=== PATIENT | male | born 1965 | race Caucasian/White ===

== ENCOUNTER 2022-01-23 16:44 | Emergency (ER) | payer OTHER, SELFPAY ==
[2022-01-23] VITALS (16 sets, daily range): BP systolic 152–178; BP diastolic 101–119; PULSE 60–67; TEMP 36.4; O2SAT 94–98; BMI 31.7
--- NOTE | 2022-01-23 16:53 | ED.GENADULT ---
HPI - General Adult General Time Seen by Provider: 16:53 Date Seen: 01/23/22 Chief complaint: Chest Pain Stated complaint: Chest Pain, Light Headed Time Seen by Provider: 01/23/22 16:48 Source: patient and RN notes reviewed Mode of arrival: ambulatory Limitations: no limitations History of Present Illness HPI narrative: Patient is a 56-year-old male coming in with concern of some left chest pain that is occasionally felt into his back. He noticed this yesterday. He feels like he noticed it after he woke up, believes it did not wake him up. Was there during the day. Did not really alter his activity. This morning when he woke up he does not feel like he felt the discomfort. He went and had a cup of coffee and felt the left chest pain come on but no regurgitant symptom with that. He states he has had some indigestion before which she will describe as a symptom he feels in his left chest, he will usually feel a regurgitant episode with it though. He did go 4 miles on the elliptical this morning, after the chest pain is started, but does not recollect the really had a lot of chest pain at the time. He had no problems completing that 4 miles. He did go out and shovel snow after that. When he started shoveling snow he remembers that he felt a little of the symptoms in the chest but does not believe it worsened. Does not seem to be altered by breathing. He felt a little lightheaded or dizzy, not a spinning sensation with it prior to coming in. Was just sitting on the couch and felt like his heart did a funny beat or skipped a beat and he thought he could fall forward. That prompted him to come in. He has not had any cough or cold symptoms, no fevers or chills. No abdominal pain with this. He states back in the early , he had an episode where he felt like his heart was doing something funny, came in and his blood pressure was elevated. He states he wore a monitor for a day and they did not find anything. He had had no interim complications. He states last year his cholesterol was elevated. He does not carry a prior diagnosis of hypertension, hyperlipidemia or diabetes. He is not aware of any cardiac disease in his family history. Related Data Previous Rx's Medication Instructions Recorded omeprazole 40 mg capsule,delayed 40 mg PO DAILY #14 caps 01/23/22 release Allergies Allergy/AdvReac Type Severity Reaction Status Date / Time No Known Drug Allergies Allergy Verified 01/23/22 16:50 Review of Systems Status of ROS: Reports: 10 or more systems reviewed and unremarkable except as noted in History and below PFS PFS Social History Smoking Status: Never smoker How often do you have a drink containing alcohol: 4 or more times a week How many standard drinks containing alcohol do you have on a typical day: 3 or 4 How often do you have six or more drinks on one occasion: Never AUDIT-C Alcohol total score: 5 Non-prescribed substance use: denies use Exam Const: Vital Signs, click to edit/add: Vital Signs - 24 hr 01/23/22 16:48 01/23/22 17:00 01/23/22 17:05 Temperature 97.6 F Pulse Rate Pulse Rate [Left P ulse Oximeter] 65 66 Blood Pressure Blood Pressure [Le ft Upper Arm] 178/119 H 175/106 H Pulse Oximetry 98 97 97 Oxygen Delivery Me thod Room Air Room Air 01/23/22 17:24 01/23/22 17:30 01/23/22 17:32 Temperature Pulse Rate 67 63 62 Pulse Rate [Left P ulse Oximeter] Blood Pressure 152/103 H Blood Pressure [Le ft Upper Arm] Pulse Oximetry 95 96 96 Oxygen Delivery Me thod 01/23/22 17:45 Temperature Pulse Rate 61 Pulse Rate [Left P ulse Oximeter] Blood Pressure Blood Pressure [Le ft Upper Arm] Pulse Oximetry 96 Oxygen Delivery Me thod Documenting provider has reviewed patient's vital signs: yes Common normals: no apparent distress, average body habitus, oriented x3, no limitations, healthy appearing, alert and well nourished General appearance: cooperative, comfortable, well kempt and well developed Nutritional appearance: overweight HENMT: Common normals: normocephalic, head/scalp atraumatic, hearing grossly normal bilaterally, external ears normal, external nose normal, nasal mucous membranes and turbinates normal, moist oral mucous membranes, oropharynx normal, dentition normal and gingiva normal Head and scalp: normocephalic and atraumatic Nose: external nose normal and nasal mucous membranes and turbinates normal External ear: external ears normal Eye: Common normals: PERRL, EOMs intact bilaterally, conjunctivae normal and no scleral icterus Conjunctiva: conjunctiva(e) normal Pupil: PERRL Neck & C-Spine: Common normals: full ROM, no lymphadenopathy, supple, no meningeal signs, no JVD and thyroid normal Thyroid: thyroid normal Chest: Common normals: inspection of chest normal and palpation of chest normal Resp: Common normals: normal respiratory effort, no retractions, no use of accessory muscles and clear to auscultation bilaterally Auscultation: clear to auscultation bilaterally Cardio: Common normals: no JVD, regular rate, regular rhythm, S1 normal heart sound, S2 normal heart sound, no gallops, no clicks and no murmurs Rate: regular rate Rhythm: regular rhythm Heart sounds: S1 normal and S2 normal GI: Common normals: Normal to inspection, nondistended, normoactive bowel sounds present, soft to palpation, non-tender, no hepatosplenomegaly and no masses Palpation: soft and no hepatosplenomegaly Extremity: Common normals: normal to inspection, full ROM, normal capillary refill, no joint enlargement, no clubbing, cyanosis or edema, no calf tenderness and no pedal edema Neuro: Common normals: oriented x3, CN's II-XII intact bilaterally, moves all extremities, no focal motor deficits, no sensory deficits noted and gait normal Sensorium/orientation: alert Meningeal signs: no meningeal signs Speech: speech normal Psych: Appearance: well kempt Course Course Hospital Course: Need to consider acute cardiopulmonary etiologies including infection, ischemia/infarct, other cardiac etiologies but do doubt anything like myocarditis or pericarditis based on history, consider thromboembolic issues, dissection. Is possible this could certainly be GI an atypical reflux or other GI etiologies. Right now is hemodynamically stable. Will continue to watch his blood pressure. Given that he is quite comfortable in minimal symptoms at this time, am not going to intervene with any medications. Obviously if his troponin is elevated will need to initiate aspirin and other appropriate cardiac interventions. Reevaluation(s) Reevaluation #1: Patient just feels a little slight pain now, it is maybe moved a little over in his chest. He thinks it is almost maybe because away he sitting. We reviewed that his chest x-ray is not revealing any acute abnormality, labs are certainly reassuring. D-dimer is normal, troponin is normal. A single troponin should be sufficient as he has actually had some chest pain since yesterday. We discussed possible musculoskeletal etiologies and he had done some activity that he thought maybe could contribute to that. We also discussed GI possibilities. If this is a dyspepsia or GERD equivalent, he really should talk to his primary doctor Lobo. Consideration for an EGD might need to be entertained if he does have some ongoing symptoms. At this time he should be safe for discharge to home for further outpatient evaluation. I have discussed with both he and his that if his symptomatology is worsening, develops new or concerning symptoms, it is imperative for him to follow up to ensure that he is not had progression of something that was just not diagnosable at his 1st visit. Time: 19:16 Vital Signs Vital signs: Initial Vital Signs Temperature 97.6 F 01/23/22 16:48 Temperature Source Temporal Artery Scan 01/23/22 16:48 Pulse Rate 65 01/23/22 16:48 Blood Pressure 178/119 H 01/23/22 16:48 Blood Pressure Mean 138 01/23/22 16:48 Blood Pressure Position Supine 01/23/22 16:48 Pulse Oximetry 98 01/23/22 16:48 Oxygen Delivery Method 01/23/22 16:48 Vital Signs Temperature 97.6 F 01/23/22 16:48 Pulse Rate 65 01/23/22 16:48 Blood Pressure 178/119 H 01/23/22 16:48 Pulse Oximetry 98 01/23/22 16:48 Oxygen Delivery Method 01/23/22 16:48 Temperature 97.6 F 01/23/22 16:48 Pulse Rate 61 01/23/22 17:45 Blood Pressure 152/103 H 01/23/22 17:32 Pulse Oximetry 96 01/23/22 17:45 Oxygen Delivery Method 01/23/22 17:00 Medical Decision Making Lab Data Lab results reviewed: Yes I reviewed the patient's lab results Labs: Lab Results 01/23/22 01/23/22 01/23/22 Range/Units 17:06 17:12 17:20 WBC 6.72 (4.50-11.00) K/uL RBC 4.49 (4.30-5.90) m/uL Hgb 14.3 (13.5-17.5) gm/dL Hct 41.7 (37.0-53.0) % MCV 93 (80-100) fL MCH 32 (26-34) pg MCHC 34 (32-36) gm/dL RDW Coeff of Scot 12.1 (11.5-15.5) % Plt Count 177 (140-440) K/uL Neut % (Auto) 62.2 (42.0-72.0) % Lymph % (Auto) 24.0 (20-44) % [place] % (Auto) 10.3 (0.0-11.0) % Eos % (Auto) 3.0 (0.0-7.0) % Baso % (Auto) 0.4 (0.0-3.0) % Neut # (Auto) 4.18 (1.7-7.0) K/uL Lymph # (Auto) 1.61 (0.90-2.90) K/uL [place] # (Auto) 0.70 (0.00-0.90) K/UL Eos # (Auto) 0.20 (0.00-0.50) K/uL Baso # (Auto) 0.03 (0.00-0.30) K/uL Abs Immat Gran (auto) 0.01 (0.00-0.30) K/uL Imm/Tot Granulo (auto) 0.1 % D-Dimer Quant (PE/DVT) (0.00-0.50) ug/ml Sodium (135-149) mmol/L Potassium (3.6-5.1) mmol/L Chloride (96-114) mmol/L Carbon Dioxide (20-32) mmol/L BUN (7-30) mg/dL Creatinine (0.5-1.5) mg/dL Estimated Creat Clear Estimated GFR ml/min Glucose (60-115) mg/dL Calcium (8.4-10.6) mg/dL Total Bilirubin (0.1-1.5) mg/dL AST (12-35) U/L ALT (4-50) U/L Alkaline Phosphatase (40-150) U/L C-Reactive Protein (0.5-1.0) mg/dL NT-Pro-B Natriuret Pep (0-125) PG/mL Total Protein (6.0-8.3) g/dL Albumin (3.3-5.0) g/dL Lipase (23-300) U/L SARS-CoV-2 (PCR) Negative SARS-CoV-2 (Negative) POC Troponin I 0.00 L (0.01-0.04) ng/ml 01/23/22 01/23/22 Range/Units 17:20 17:20 WBC (4.50-11.00) K/uL RBC (4.30-5.90) m/uL Hgb (13.5-17.5) gm/dL Hct (37.0-53.0) % MCV (80-100) fL MCH (26-34) pg MCHC (32-36) gm/dL RDW Coeff of Scot (11.5-15.5) % Plt Count (140-440) K/uL Neut % (Auto) (42.0-72.0) % Lymph % (Auto) (20-44) % [place] % (Auto) (0.0-11.0) % Eos % (Auto) (0.0-7.0) % Baso % (Auto) (0.0-3.0) % Neut # (Auto) (1.7-7.0) K/uL Lymph # (Auto) (0.90-2.90) K/uL [place] # (Auto) (0.00-0.90) K/UL Eos # (Auto) (0.00-0.50) K/uL Baso # (Auto) (0.00-0.30) K/uL Abs Immat Gran (auto) (0.00-0.30) K/uL Imm/Tot Granulo (auto) % D-Dimer Quant (PE/DVT) 0.39 (0.00-0.50) ug/ml Sodium 139 (135-149) mmol/L Potassium 3.8 (3.6-5.1) mmol/L Chloride 105 (96-114) mmol/L Carbon Dioxide 28 (20-32) mmol/L BUN 20 (7-30) mg/dL Creatinine 1.4 (0.5-1.5) mg/dL Estimated Creat Clear 58.92 Estimated GFR 59 ml/min Glucose 98 (60-115) mg/dL Calcium 9.0 (8.4-10.6) mg/dL Total Bilirubin 0.4 (0.1-1.5) mg/dL AST 31 (12-35) U/L ALT 32 (4-50) U/L Alkaline Phosphatase 66 (40-150) U/L C-Reactive Protein < 0.5 L (0.5-1.0) mg/dL NT-Pro-B Natriuret Pep 35 (0-125) PG/mL Total Protein 7.2 (6.0-8.3) g/dL Albumin 4.5 (3.3-5.0) g/dL Lipase 68 (23-300) U/L SARS-CoV-2 (PCR) (Negative) POC Troponin I (0.01-0.04) ng/ml Imaging Data Chest x-ray: Attestation: I have reviewed the pertinent imaging results. My impression: I see no acute cardiopulmonary pathology on my preliminary read, wait radiology over read. Radiologist's impression: Patient: PRATIMA GRAY Facility:?[facility] Patient ID:?[id number] Site Patient ID:?[id number]. Site :?[id number] Study:?XRay Chest -01/23/2022 5:27:17 PM Ordering Physician:Wan Mcgarry Final Report: INDICATION: Chest pain TECHNIQUE: Single view chest. FINDINGS: The ascending thoracic aorta appears slightly ectatic. The cardiac mediastinal silhouette is otherwise unremarkable. The lungs are clear. No effusion or pneumothorax. Dictated by Fartun Brannon MD @ 01/23/2022 5:52:22 PM (Electronic Signature) ECG Data Attestation: I personally reviewed and interpreted this ECG as follows: (Sinus rhythm, 64 beats per minute, normal EKG, no ischemia or infarct. QT corrected 410 milliseconds.) Prior ECG tracings: not available for review Critical Care Time Critical Care Time Critical Care Time: No Discharge Plan Discharge Clinical Impression: Episodic lightheadedness, Chest pain Condition: Stable Instructions: Chest Pain (ED), Indigestion (ED), Lightheadedness (ED) Additional Instructions: Can try Prilosec or omeprazole daily and see if it does aiding her symptoms. Need to be seen by your primary care provider to continue to work up your symptoms. In the meantime, she do develop increasing chest pain, lightheadedness/dizziness, feel like your going to pass out, notice heart racing or irregular beats, feel short of breath, have new or concerning symptoms at all, please return to the ER for further evaluation. Activity Level: Activity as Tolerated Discharge Diet: Regular Prescriptions: New omeprazole 40 mg capsule,delayed release(DR/EC) 40 mg PO DAILY Qty: 14 0RF Follow Up/Referrals: Ramirez Diamond MD [Primary Care Provider] - Stand Alone Forms: [employer] Info Instructions
--- NOTE | 2022-01-23 17:05 | CRLHL7_ITS ---
For Patients: As a result of the Century Cures Act, medical imaging exams and procedure reports are released immediately into your electronic medical record. You may view this report before your referring provider. If you have questions, please contact your health care provider. INDICATION: Chest pain TECHNIQUE: Single view chest. FINDINGS: The ascending thoracic aorta appears slightly ectatic. The cardiac mediastinal silhouette is otherwise unremarkable. The lungs are clear. No effusion or pneumothorax. Dictated by Fartun Brannon MD @ 01/23/2022 5:52:22 PM (Electronically Signed)
[2022-01-23 17:29] LABS: Basophils Absolute Auto 0.03 K/uL (0.00-0.30); Basophils Percent Auto 0.4 % (0.0-3.0); Hematocrit 41.7 % (37.0-53.0); Hemoglobin* 14.3 gm/dL (13.5-17.5); Immature Granulocytes Abs Auto 0.01 K/uL (0.00-0.30); Immature Granulocytes Pct Auto 0.1 %; Lymphocytes Absolute Auto 1.61 K/uL (0.90-2.90); Mean Corpuscular HGB Conc 34 gm/dL (32-36); Mean Corpuscular Hemoglobin 32 pg (26-34); Mean Corpuscular Volume 93 fL (80-100); Monocytes Percent Auto 10.3 % (0.0-11.0); Neutrophils Absolute Auto 4.18 K/uL (1.7-7.0); Neutrophils Percent Auto 62.2 % (42.0-72.0); Platelet Count* 177 K/uL (140-440); RDW Coefficient of Variation % 12.1 % (11.5-15.5); Red Blood Count 4.49 m/uL (4.30-5.90); White Blood Count* 6.72 K/uL (4.50-11.00)
[2022-01-23 17:34] LABS: Slide Review Reflex No
[2022-01-23 17:43] LABS: Albumin* 4.5 g/dL (3.3-5.0); Chloride* 105 mmol/L (96-114)
[2022-01-23 17:44] LABS: Potassium* 3.8 mmol/L (3.6-5.1); Sodium* 139 mmol/L (135-149)
[2022-01-23 17:46] LABS: Bilirubin Total* 0.4 mg/dL (0.1-1.5); Creatinine* 1.4 mg/dL (0.5-1.5); Est. Creatinine Clearance* 58.92; Estimated Glomerular Filt Rate 59 ml/min
[2022-01-23 17:47] LABS: Alanine Aminotransferase* 32 U/L (4-50); Alkaline Phosphatase* 66 U/L (40-150); Aspartate Amino Transferase* 31 U/L (12-35); Blood Urea Nitrogen* 20 mg/dL (7-30); Carbon Dioxide* 28 mmol/L (20-32); Glucose* 98 mg/dL (60-115); Lipase* 68 U/L (23-300); Total Protein* 7.2 g/dL (6.0-8.3)
[2022-01-23 17:49] LABS: D Dimer Quantitative* 0.39 ug/ml (0.00-0.50)
[2022-01-23 17:54] LABS: C Reactive Protein* < 0.5 mg/dL (0.5-1.0)
[2022-01-23 17:55] LABS: NT Pro B Type NatriureticPept* 35 PG/mL (0-125)
[2022-01-23 18:13] LABS: SARS PCR* Negative SARS-CoV-2 (Negative)
== END 2022-01-23 19:33 | disposition home or self-care (01) ==
PROVIDERS: Emergency Provider Family Medicine; PCP Internal Medicine
DX: R42 Dizziness and giddiness (principal); R07.9 Chest pain, unspecified
CPT/HCPCS: 36415; 71045; 80053; 83690; 83880; 85025; 85379; 86140; 87635; 93005; 94761; 99284

== ENCOUNTER 2022-05-20 11:28 | Outpatient (CLI) | payer OTHER, SELFPAY | END 2022-05-20 11:29 | disposition home or self-care (01) | LOC: NFLDREF 05-21 08:00 | PROVIDERS: PCP Internal Medicine; Referring Provider Internal Medicine; Visit Provider Internal Medicine | DX: Z00.00 Encounter for general adult medical examination without abnormal findings (principal); I10 Essential (primary) hypertension; Z13.6 Encounter for screening for cardiovascular disorders; Z12.5 Encounter for screening for malignant neoplasm of prostate | CPT/HCPCS: 80053; 80061; 84153 ==

== ENCOUNTER 2023-07-26 08:44 | Outpatient (CLI) | payer OTHER, SELFPAY | END 2023-07-26 08:45 | disposition home or self-care (01) | PROVIDERS: PCP Internal Medicine; Visit Provider Internal Medicine | DX: Z00.00 Encounter for general adult medical examination without abnormal findings (principal); I10 Essential (primary) hypertension; Z12.5 Encounter for screening for malignant neoplasm of prostate; Z13.6 Encounter for screening for cardiovascular disorders | CPT/HCPCS: 80053; 80061; G0103 ==

== ENCOUNTER 2023-11-01 08:12 | Outpatient (CLI) | payer OTHER, SELFPAY ==
--- OUTSIDE RECORDS SUMMARY | 2023-11-02 11:41 | XMS_ITS | Encounter Summary ---
Author Organization [facility] Address [address] [address] Care Team Providers Care Rubber Press Operator Name Role Phone Ramirez Diamond MD Primary Care Provider [phone] Encounter Details Date Type Department Care Team (Late st Contact Info) Description 04/03/2012 Orders Only [facility] [address] [place] [id number] Tyler Cox MD [address] [place] [id number] Social History Tobacco Use Types Packs/Day Years Used Date Smoking Tobacco: Never Assessed Sex and Gender Information Value Date Recorded Sex Assigned at Not on file Gender Identity Not on file Sexual Orientation Not on file documented as of this encounter Plan of Treatment Not on file documented as of this encounter Visit Diagnoses Not on filedocumented in this encounter Care Teams Rubber Press Operator Relationship Specialty Start Date End Date Ramirez Daimond MD [address] [place] [address] PCP - General 02/15/13 documented as of this encounter
--- OUTSIDE RECORDS SUMMARY | 2023-11-02 11:41 | XMS_ITS | Clinical Summary ---
Author Organization [facility] Address [place], [place] [address] Care Team Providers Care Animal Daycare Provider Name Role Phone Pcp, No Primary Care Provider Unavailabl e Allergies No known active allergies Medications Medication Sig Dispensed Refills Start Date End Date Status ZYRTEC-D ORAL one daily 0 Active NASONEX NASL None Entered 0 Active Active Problems Problem Noted Date Diagnosed Date Allergic rhinitis, cause unspecified 05/03/2006 Family History Medical History Relation Name Comments Other Brother drug concerns Cancer-prostate Father Cancer Maternal Grandmother liver Other Mother drug concerns Relation Name Status Comments Brother Father Maternal Grandmother Mother Social History Tobacco Use Types Packs/Day Years Used Date Smoking Tobacco: Never Tobacco Cessation:Counseling Given: Yes Alcohol Use Standard Drinks/Week Comments Yes 0 (1 standard drink = 0.6 oz pure alcohol) beer,wine ,hard liquor, 3 times a week Sex and Gender Information Value Date Recorded Sex Assigned at Not on file Gender Identity Not on file Sexual Orientation Not on file Obstetrics History Last Filed Vital Signs Vital Sign Reading Time Taken Comments Blood Pressure 153/88 05/16/2016 10:00 AM CDT Pulse 70 05/16/2016 10:00 AM CDT Temperature 36.6 ??C (97.8 ??F) 05/16/2016 9:11 AM CD T Respiratory Rate - - Oxygen Saturation 99% 05/16/2016 9:11 AM CDT Inhaled Oxygen Concentration - - Weight 94.3 kg (207 lb 14.4 oz) 05/16/2016 9:11 AM CDT Height - - Body Mass Index - - Plan of Treatment Health Maintenance Due Date Last Done Comments Tdap 1976 Depression screening for age 12+ 1977 HIV for age 15-65 1980 BMI (ht and wt on same day) for age 18+ 08/26/1983 Hepatitis C screening for ag e 18-79 08/26/1983 Tetanus booster 1985 Colonoscopy through age 75 2010 Lipids for age 45-75 2010 Zoster (shingles) series for age 50+ (1 of 2) 08/26/2015 COVID-19 vaccine series (2022- season) 2022 Influenza for age 50-64 11/05/2023 Pneumococcal series for age 6-64 Aged Out No longer eligible based on patient's age to complete this topic Care Teams Animal Daycare Provider Relationship Specialty Start Date End Date Pcp, No . PCP - General 07/27/20
--- OUTSIDE RECORDS SUMMARY | 2023-11-02 11:41 | XMS_ITS | Clinical Summary ---
Author Organization [facility] Address [address], [place] [address] Care Team Providers Care Charge Master Specialist Name Role Phone Ramirez Diamond MD Primary Care Provider [phone]- [phone] Source Comments You are receiving this document as you are listed as the primary care provider,follow-up provider, or the patient has been referred to you for consultation.This is in compliance with the Medicare and[facility] EHR Incentive Program,which states Providers who transition their patient to another setting of careor provider of care or refers their patient to another provider of care shouldprovide summary care record for each transition of care or referral. [facility] Allergies No known active allergies Medications No known medications Active Problems Problem Noted Date Diagnosed Date Osteoarthritis 08/10/2002 Overview (10/26/2016): DJD Social History Tobacco Use Types Packs/Day Years Used Date Smoking Tobacco: Never Sex and Gender Information Value Date Recorded Sex Assigned at Not on file Gender Identity Not on file Sexual Orientation Not on file Last Filed Vital Signs Vital Sign Reading Time Taken Comments Blood Pressure - - Pulse - - Temperature - - Respiratory Rate - - Oxygen Saturation - - Inhaled Oxygen Concentration - - Weight 90.7 kg (200 lb) 03/03/2021 2:42 PM LINE SERVER Height 175.3 cm (5' 9) 03/03/2021 2:42 PM LINE SERVER Body Mass Index 29.53 03/03/2021 2:42 PM LINE SERVER Plan of Treatment Health Maintenance Due Date Last Done Comments Colon Cancer Screening Plan Due 1965 Hep C Screening (Preventive Services) 1965 PSA Screening Discussion 1965 HIV Screening (Preventive Services) 1981 Adult Preventive Visit 08/26/1983 HepB (1) 1984 Cholesterol 02/23/2006 02/23/2001 Zoster/Shingles (1 of 2) 08/26/2015 COVID-19 Vaccine (4 - 2022-2 4 season) 2022 01/18/2021, 06/13/2020, 05/23/2020 Influenza (#1) 2023 12/16/2020, 12/10/2010, 01/06/2009 DTaP/Tdap/Td (3 - Tdap) 05/08/2029 05/09/19, 08/31/2008 HepA Aged Out No longer eligi ble based on patient's age to complete this topic Hib Aged Out No longer eligi ble based on patient's age to complete this topic IPV (Polio) Aged Out No longer eligi ble based on patient's age to complete this topic MCV4 Aged Out No longer eligi ble based on patient's age to complete this topic Pneumococcal Aged Out No longer eligi ble based on patient's age to complete this topic Procedures Procedure Name Priority Date/Time Associated Diagnosis Comments CHOLESTEROL (TOTAL) Routine 02/23/2001 9 :49 AM LINE SERVER from Last 3 Months or Most Recently Relevant to Health Maintenance Results * Cholesterol (Total) (02/23/2001 9:49 AM LINE SERVER) Cholesterol 150 125 - 199 mg/dL HP CONVERSION 02/23/2001 9:49 AM LINE SERVER Oleg García MD LAB_1 HP CONVERSION from Last 3 Months or Most Recently Relevant to Health Maintenance Care Teams Charge Master Specialist Relationship Specialty Start Date End Date Ramirez Diamond MD [address] [place] [address] PCP - General 02/15/13
== END 2023-11-01 08:13 | disposition home or self-care (01) ==
LOC: NFLDREF 11-02 11:39
PROVIDERS: PCP Internal Medicine; Referring Provider Internal Medicine; Visit Provider Internal Medicine
DX: R97.20 Elevated prostate specific antigen [PSA] (principal)
CPT/HCPCS: G0103

== ENCOUNTER 2024-11-21 10:57 | Outpatient (CLI) | payer OTHER, SELFPAY | END 2024-11-21 10:58 | disposition home or self-care (01) | PROVIDERS: PCP Internal Medicine; Visit Provider Internal Medicine | DX: I10 Essential (primary) hypertension (principal); Z13.6 Encounter for screening for cardiovascular disorders; Z12.5 Encounter for screening for malignant neoplasm of prostate | CPT/HCPCS: 80053; 80061; G0103 ==